=== PATIENT | female | born 1975 | race Caucasian/White ===

== ENCOUNTER → 2023-08-11 | Outpatient (CLI) | payer BC ==
--- NOTE | 2023-08-15 14:15 | NM ---
EXAMINATION TYPE: NM DatScan Brain SPECT DATE OF EXAM: 08/11/2023 COMPARISON: NONE CLINICAL INDICATION: Female, 48 years old with history of R25.1 TREMOR, UNSPECIFIED; TECHNIQUE: 10 drops of Lugol's solution was administered 1 hour prior to injection as a thyroid bloc magi agent. After the administration of 4.74 mCi I-123 Ioflupane DaTscan. Images obtained 3 hours p ost injection. SPECT images of the brain were acquired with axial and coronal reconstructions. FINDINGS: Despite the presence normal comma-shaped activity within the bilateral corpus striata, there is marke dly increased background activity. The measured Z score values are very low measuring less than -4. IMPRESSION: Findings suggest globally diminished activity in the bilateral corpora striata resulting in marked in creased background activity. This would favor Parkinson's disease or a Parkinsonian syndrome. Clinica lly correlate.
== END | disposition home or self-care (01) ==
LOC: RADNMMAIN 09:10
PROVIDERS: ATTEND Psychiatry & Neurology Neurology
DX: R25.1 Tremor, unspecified (principal)
CPT/HCPCS: 78803; A9584

== ENCOUNTER → 2023-11-14 | Outpatient (CLI) | payer BC ==
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
[2023-11-14 14:59] VITALS: BP 105/61; PULSE 69; RESP 12; TEMP 98.1
== END ==
LOC: 3 N SLEEP 13:12
PROVIDERS: ATTEND Internal Medicine Critical Care Medicine
DX: G47.30 Sleep apnea, unspecified (principal); G47.8 Other sleep disorders; F41.9 Anxiety disorder, unspecified; F32.A Depression, unspecified; G20.A1 Parkinson's disease without dyskinesia, without mention of fluctuations; G47.21 Circadian rhythm sleep disorder, delayed sleep phase type; F43.12 Post-traumatic stress disorder, chronic; Q07.00 Arnold-Chiari syndrome without spina bifida or hydrocephalus; Z86.69 Personal history of other diseases of the nervous system and sense organs; M54.50 Low back pain, unspecified; R42 Dizziness and giddiness
CPT/HCPCS: 99202

== ENCOUNTER 2023-12-06 19:50 | Outpatient (CLI) | payer BC ==
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
== END 2023-12-07 05:45 | disposition home or self-care (01) ==
LOC: 3 N SLEEP 19:50
PROVIDERS: ATTEND Internal Medicine Critical Care Medicine
DX: F32.A Depression, unspecified (principal); F43.10 Post-traumatic stress disorder, unspecified; F41.9 Anxiety disorder, unspecified; M79.18 Myalgia, other site; G89.29 Other chronic pain; Q07.00 Arnold-Chiari syndrome without spina bifida or hydrocephalus; G47.61 Periodic limb movement disorder; M54.9 Dorsalgia, unspecified; F17.210 Nicotine dependence, cigarettes, uncomplicated; G93.5 Compression of brain; M47.812 Spondylosis without myelopathy or radiculopathy, cervical region; Z87.39 Personal history of other diseases of the musculoskeletal system and connective tissue; Z87.828 Personal history of other (healed) physical injury and trauma; Z86.69 Personal history of other diseases of the nervous system and sense organs
CPT/HCPCS: 95810

== ENCOUNTER → 2024-04-11 | Outpatient (CLI) | payer BC ==
--- NOTE | 2024-04-11 18:00 | CT ---
EXAMINATION TYPE: CT brain cspine wo con CT DLP: 963.6 mGycm, Automated exposure control for dose reduction was used. DATE OF EXAM: 04/11/2024 5:27 PM COMPARISON: None. CLINICAL INDICATION: Female, 48 years old with history of G93.5 CHIARI MALFO R42 DIZZY G43.909 MIGRAI NE; Chiari malformation/dizzy TECHNIQUE: Brain: Multiple axial CT images of the brain were obtained without IV contrast. Cspine: Axial CT images from the skull base to the inferior aspect of T2 we obtained without intraven ous contrast. Coronal and sagittal reformatted images were also reviewed. . FINDINGS: Brain: Extra-axial spaces: No abnormal extra-axial fluid collections. Ventricular system: Within normal limits Cerebral parenchyma: No acute intraparenchymal hemorrhage or mass effect. The alves-white junction is well differentiated. Cerebellum: Cerebellar tonsils do not definitely extend down into the cervical spine. Mass effect: No evidence of midline shift. Intracranial vasculature: unremarkable Soft tissues: Normal. Calvarium/osseous structures: No depressed skull fracture. Surgical changes to the posterior occiput. Paranasal sinuses and mastoid air cells: Clear. Visualized orbits: Orbital contents are intact. Cervical spine: Fracture: None. Osseous structures: Multilevel degenerative disc disease changes with endplate spurring and disc oste ophyte complex's. Vertebral alignment: Within normal limits. Spinal canal/Neural Foramina: Disc osteophyte complexes at C5-C6 and C6-C7. With at least mild spinal canal stenosis. No evidence for significant neural foraminal stenosis. Neck soft tissues: Prevertebral soft tissues are within normal limits. Other: The airway is patent. The lung apices are clear. IMPRESSION: 1. Postsurgical changes no evidence for cerebellar tonsils extending to the cervical spine. 2. No acute intracranial process 3. No evidence of cervical spine fracture. 4. Mild multilevel degenerative disc disease. [facility], Workstation: [id number], 04/11/2024 5:58 PM
--- NOTE | 2024-04-11 18:05 | CT ---
EXAMINATION TYPE: CT lumbar spine wo con CT DLP: 707 mGycm, Automated exposure control for dose reduction was used. DATE OF EXAM: 04/11/2024 5:27 PM COMPARISON: None. CLINICAL INDICATION: Female, 48 years old with history of G93.5 CHIARI MALFO R42 DIZZY G43.909 MIGRAI NE; PHH, lower back pain TECHNIQUE: Multiple axial images were obtained from the midportion of T11 through the sacroiliac gilda nts. Soft tissue and bone windows in coronal and sagittal planes were obtained and reviewed. Contrast used: mL of , (None, if empty). Oral contrast used: (None, if empty). FINDINGS: Alignment: There are 5 lumbar type vertebral bodies within normal alignment. Bone: Mild degeneration changes throughout the lumbar spine with osteophyte formation and facet joint arthropathy. Discs: T12-L1: No spinal canal or neural foraminal stenosis is identified. L1-L2: No spinal canal or neural foraminal stenosis is identified. L2-L3: No spinal canal or neural foraminal stenosis is identified. L3-L4: No spinal canal or neural foraminal stenosis is identified. L4-L5: No spinal canal or neural foraminal stenosis is identified. L5-S1: No spinal canal or neural foraminal stenosis is identified. Other: None IMPRESSION: 1. No evidence for spinal fracture. 2. Mild degeneration without evidence of significant spinal canal or neural foraminal stenosis. [facility], , 04/11/2024 6:02 PM
== END | disposition home or self-care (01) ==
LOC: RADCTMAIN 16:49
PROVIDERS: ATTEND Psychiatry & Neurology Neurology
DX: G93.5 Compression of brain
CPT/HCPCS: 70450; 72125; 72131